=== PATIENT | female | born 1950 | race Caucasian/White ===

== ENCOUNTER → 2023-11-28 | Emergency (ER) | payer OTHER ==
[~2023-11-28] MED LIST: cloNIDine HCL 0.1 MG TAB ONE
[2023-11-28 14:02] LABS: Absolute Lymphocytes (CBC) 2.3 K/uL (0.7-4.9); Hematocrit 42.5 % (36.0-45.0); MCV 90.4 fL (80-100); MPV 8.9 fL (7.6-11.3); Platelets 267 thou/uL (152-406)
--- NOTE | 2023-11-28 14:13 | RAD REPORT ---
EXAM DESCRIPTION: CT - Head Brain Wo Cont - 11/28/2023 2:03 pm CLINICAL HISTORY: Headache;Visual disturbances COMPARISON: No comparisons TECHNIQUE: All CT scans are performed using dose optimization technique as appropriate and may inclu de automated exposure control or mA/KV adjustment according to patient size. FINDINGS: No intracranial hemorrhage, hydrocephalus or extra-axial fluid collection.No areas of brai n edema or evidence of midline shift. The paranasal sinuses and mastoids are clear. The calvarium is intact. IMPRESSION: No acute intracranial abnormality.
--- NOTE | 2023-11-28 14:15 | RAD REPORT ---
EXAM DESCRIPTION: RAD - Chest Single View - 11/28/2023 1:58 pm CLINICAL HISTORY: CHEST PAIN COMPARISON: No comparisons FINDINGS: Lines: None. Lungs: No evidence of edema or pneumonia. Pleural: No significant pleural effusions or pneumothorax. Cardiac: The heart size is within normal limits. Mediastinum: Within normal limits. Bones: No acute fractures. Other: None IMPRESSION: No acute cardiopulmonary disease.
[2023-11-28 14:22] LABS: Potassium 4.1 mEq/L (3.5-5.1)
--- NOTE | 2023-11-28 14:27 | ER ---
Nurse's Notes [facility] Name: Gayatri Castañeda Age: 73 yrs Sex: Female : 1950 Arrival Date: 11/28/2023 Time: 13:08 Bed 17 Private MD: Diagnosis: Essential (primary) hypertension Presentation: 11/28 13:12 Chief complaint: Patient states: Dr Bartlett said if she felt dizzy or nauseated to come ko1 in and she is feeling this today. Scheduled for echo tomorrow. Coronavirus screen: At this time, the client does not indicate any symptoms associated with coronavirus-19. Ebola Screen: No symptoms or risks identified at this time. Initial Sepsis Screen: Does the patient meet any 2 criteria? No. Patient's initial sepsis screen is negative. Does the patient have a suspected source of infection? No. Patient's initial sepsis screen is negative. Risk Assessment: Do you want to hurt yourself or someone else? Patient reports no desire to harm self or others. Onset of symptoms was November 28, 2023. 13:12 Method Of Arrival: Ambulatory ko1 13:12 Acuity: HOLDEN 3 ko1 Triage Assessment: 13:12 General: Appears in no apparent distress. Behavior is calm, cooperative, appropriate ko1 for age. Pain: Complains of pain in headache. GI: Reports nausea. Historical: - Allergies: 13:21 No Known Allergies; ko1 - PMHx: 13:21 Hypertensive disorder; ko1 - Immunization history:: Adult Immunizations unknown. - Social history:: Smoking status: Patient denies any tobacco usage or history of. Screenin:36 [facility] ED Fall Risk Assessment (Adult) History of falling in the last 3 months, me1 including since admission No falls in past 3 months (0 pts) Confusion or Disorientation No (0 pts) Intoxicated or Sedated No (0 pts) Impaired Gait No (0 pts) Mobility Assist Device Used No (0 pt) Altered Elimination No (0 pt) Score/Fall Risk Level 0 - 2 = Low Risk Oriented to surroundings, Provided non-skid footwear, Hourly rounding (assess needs \T\ fall precautionary measures) done. Abuse screen: Denies threats or abuse. Nutritional screening: No deficits noted. Tuberculosis screening: No symptoms or risk factors identified. Assessment: 13:59 General: Appears comfortable, well groomed, well developed, well nourished, Behavior is me1 calm, cooperative, appropriate for age, Reports Dr Bartlett said if she felt dizzy or nauseated to come in and she is feeling this today. Scheduled for echo tomorrow. Pain: Denies pain. Neuro: Level of Consciousness is awake, alert, obeys commands, Oriented to person, place, time, situation, Appropriate for age. Neuro: Reports dizziness, for a short time this morning. Cardiovascular: Capillary refill < 3 seconds Patient's skin is warm and dry. Respiratory: Airway is patent Respiratory effort is even, unlabored, Respiratory pattern is regular, symmetrical. GI: Abdomen is flat, Reports nausea. 14:01 Cardiovascular: Denies chest pain. me1 Vital Signs: 13:12 BP 220 / 111; Pulse 34; Resp 18; Temp 97.1; Pulse Ox 98% ; Weight 66.68 kg; Height 5 ko1 ft. 5 in. ; 13:36 BP 172 / 87; Pulse 85; Resp 17; Pulse Ox 95% on R/A; me1 14:27 BP 132 / 78; sb4 14:30 BP 137 / 47; Pulse 81; Resp 16; Pulse Ox 97% on R/A; me1 14:55 BP 133 / 83; Pulse 77; Resp 20; Pulse Ox 94% on R/A; me1 13:12 Body Mass Index 24.46 (66.68 kg, 165.1 cm) ko1 ED Course: 13:11 Patient arrived in ED. im 13:12 Arm band placed on right wrist. Patient placed in an exam room, on a stretcher, on ko1 pulse oximetry, Patient notified of wait time. 13:15 Triage completed. ko1 13:18 Heather Miguel PA-C is PHCP. sb4 13:18 Victoriano Kemp MD is Attending Physician. sb4 13:36 Tiffany Lopez RN is Primary Nurse. me1 13:36 Patient has correct armband on for positive identification. Bed in low position. Call me1 light in reach. Side rails up X 1. Provided Education on: POC. Verbalized understanding. . 13:36 No provider procedures requiring assistance completed. me1 13:57 Inserted saline lock: 22 gauge in left antecubital area, using aseptic technique. me1 13:58 Basic Metabolic Panel Sent. me1 13:58 CBC with Diff Sent. me1 13:58 Troponin HS Sent. me1 14:00 XRAY Chest (1 view) In Process Unspecified. EDMS 14:05 Head Brain Wo Cont CT In Process Unspecified. EDMS 14:26 Samuel Bartlett MD is Referral Physician. sb4 14:56 IV discontinued, intact, bleeding controlled, No redness/swelling at site. Pressure me1 dressing applied. Administered Medications: 13:41 Drug: cloNIDine PO 0.1 mg PO once Route: PO; me1 14:08 Follow up: Response: No adverse reaction me1 Medication: 13:36 VIS not applicable for this client. me1 Outcome: 14:26 Discharge ordered by MD. sb4 14:56 Discharged to home ambulatory, with friend, me1 14:56 Condition: stable 14:56 Discharge instructions given to patient, friend, Instructed on discharge instructions, follow up and referral plans. Demonstrated understanding of instructions, follow-up care, 14:56 Patient left the ED. me1 Signatures: Dispatcher [employer] Nancy Mas, RN RN ko1 Heather Miguel, PA-C PA-C sb4 Yessi Berumen Michelle, RN RN me1 Corrections: (The following items were deleted from the chart) 13:58 13:12 Chief complaint: Patient states: Dr Bartlett said if she felt dizzy or nauseated to me1 come in and she is feeling this today. Scheduled for echo tomorrow. ko1
--- NOTE | 2023-11-28 14:27 | EDPHYS ---
Physician Documentation [facility] Name: Gayatri Castañeda Age: 73 yrs Sex: Female : 1950 Arrival Date: 11/28/2023 Time: 13:08 Bed 17 Private MD: ED Physician Victoriano Kemp HPI: 11/28 13:30 This 73 yrs old Female presents to ER via Ambulatory with complaints of Dizziness, sb4 Nausea, Headache. 13:30 patient complains of headache, dizziness, and nausea that began just MANAGER UTILITIES. she states sb4 that she was diagnosed with hypertension about 2 weeks ago and started on carvedilol. she saw Dr. Bartlett a few days ago, who doubled the dose. she states that she did not take it last night, but did take it this morning. she denies any chest pain, shortness of breath. Historical: - Allergies: 13:21 No Known Allergies; ko1 - PMHx: 13:21 Hypertensive disorder; ko1 - Immunization history:: Adult Immunizations unknown. - Social history:: Smoking status: Patient denies any tobacco usage or history of. ROS: 13:30 Constitutional: Negative for fever, chills, and weight loss, sb4 13:30 Abdomen/GI: Positive for nausea, 13:30 Neuro: Positive for dizziness, headache, 13:30 All other systems are negative, Exam: 13:30 Constitutional: This is a well developed, well nourished patient who is awake, alert, sb4 and in no acute distress. Head/Face: Normocephalic, atraumatic. Eyes: Extra-ocular motions intact. Periorbital areas with no swelling, redness, or edema. ENT: Mucous membranes moist. Cardiovascular: Regular rate and rhythm with a normal S1 and S2. Respiratory: Lungs have equal breath sounds bilaterally, clear to auscultation and percussion. No rales, rhonchi or wheezes noted. No increased work of breathing, no retractions or nasal flaring. Abdomen/GI: Soft, non-tender, no distension. Skin: Warm, dry with normal turgor. Normal color with no rashes, no lesions, and no evidence of cellulitis. MS/ Extremity: Pulses equal, no cyanosis. Neurovascular intact. Full, normal range of motion. Neuro: Awake and alert, GCS 15, oriented to person, place, time, and situation. Motor strength 5/5 in all extremities. Sensory grossly intact. Vital Signs: 13:12 BP 220 / 111; Pulse 34; Resp 18; Temp 97.1; Pulse Ox 98% ; Weight 66.68 kg; Height 5 ko1 ft. 5 in. ; 13:36 BP 172 / 87; Pulse 85; Resp 17; Pulse Ox 95% on R/A; me1 14:27 BP 132 / 78; sb4 14:30 BP 137 / 47; Pulse 81; Resp 16; Pulse Ox 97% on R/A; me1 14:55 BP 133 / 83; Pulse 77; Resp 20; Pulse Ox 94% on R/A; me1 13:12 Body Mass Index 24.46 (66.68 kg, 165.1 cm) ko1 MDM: 13:22 Patient medically screened. sb4 13:30 Differential diagnosis: CVA, ACS, hypertensive emergency. sb4 14:25 Data reviewed: vital signs, nurses notes, lab test result(s), EKG, radiologic studies, sb4 and as a result, I will discharge patient. Consideration of Admission/Observation Escalation of care including admission/observation considered. Care significantly affected by the following chronic conditions: Hypertension. 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 Medication response: clonidine reduced the patient's elevated blood pressure to within acceptable limits. 11/28 13:29 Order name: Basic Metabolic Panel; Complete Time: 14:22 sb4 11/28 13:29 Order name: CBC with Diff; Complete Time: 14:18 sb4 11/28 13:29 Order name: Troponin HS; Complete Time: 14: sb4 11/28 13:29 Order name: XRAY Chest (1 view); Complete Time: 14:18 sb4 11/28 13:29 Order name: Head Brain Wo Cont CT; Complete Time: 14:18 sb4 11/28 13:29 Order name: EKG; Complete Time: 13:30 sb4 11/28 13:29 Order name: Cardiac monitoring; Complete Time: 14:09 sb4 11/28 13:29 Order name: EKG - Nurse/Tech; Complete Time: 13:57 sb4 11/28 13:29 Order name: IV Saline Lock; Complete Time: 13:57 sb4 11/28 13:29 Order name: Labs collected and sent; Complete Time: 13:57 sb4 11/28 13:29 Order name: O2 Per Protocol; Complete Time: 13:57 sb4 11/28 13:29 Order name: O2 Sat Monitoring; Complete Time: 13:57 sb4 EC:00 Rate is 80 beats/min. Rhythm is regular, Normal Sinus Rhythm with Unifocal PVCs. AL sb4 interval is normal at 146 msec. QRS interval is normal at 74 msec. QT interval is normal at 400 msec. Clinical impression: No evidence of ischemia. Interpreted by me. Reviewed by me. Administered Medications: 13:41 Drug: cloNIDine PO 0.1 mg PO once Route: PO; me1 14:08 Follow up: Response: No adverse reaction me1 Disposition: 17:01 Co-signature as Attending Physician, Victoriano Kemp MD I reviewed the patient's care rn provided by the Advanced Practice Provider and agree with the diagnosis and treatment plan. Disposition Summary: 11/28/23 14:26 Discharge Ordered Notes: Location: Home sb4 Problem: new sb4 Symptoms: have improved sb4 Condition: Stable sb4 Diagnosis - Essential (primary) hypertension sb4 Followup: sb4 - With: Samuel Bartlett MD - When: 2 - 3 days - Reason: Recheck today's complaints, Re-evaluation by your physician Discharge Instructions: - Discharge Summary Sheet sb4 - Hypertension, Adult sb4 - How to Take Your Blood Pressure, [id number] sb4 Forms: - Medication Reconciliation Form sb4 - Thank You Letter sb4 - Antibiotic Education sb4 - Prescription Opioid Use sb4 - Patient Portal Instructions sb4 - Leadership Thank You Letter sb4 Signatures: Dispatcher [employer] Victoriano Milton MD MD rn Oliver, Kathy, RN RN Heather Mcintyre PA-C PANicolette sb4 Tiffany Lopez RN RN me1
[2023-11-28 15:43] VITALS: BP 133/83; TEMP 97.1; O2SAT 94
--- NOTE | 2023-11-29 16:53 | EKG ---
Test Date: 2023-11-28 Test Time: 13:54:04 Follow Up Clerk: MEASUREMENT RESULTS: Intervals: Rate: 80 PA: 146 QRSD: 74 QT: 400 QTc: 461 Collins: P: 53 PA: 146 QRS: 21 T: 69 INTERPRETIVE STATEMENTS: Sinus rhythm with frequent premature ventricular complexes Possible Left atrial enlargement Cannot rule out Anterior infarct, age undetermined Abnormal ECG No previous ECG available for comparison Electronically Signed On 11-29-23 16:51:27 CARDIOGRAPH OPERATOR by Samuel Bartlett
== END ==
LOC: ER 13:08
DX: I10 Essential (primary) hypertension (principal)
CPT/HCPCS: 36415; 70450; 71045; 80048; 84484; 85025; 93005; 99284

== ENCOUNTER 2024-01-24 18:16 | Inpatient (IN) | payer OTHER ==
[2024-01-24 18:59] LABS: Absolute Basophils 0.1 K/uL (0-0.5); Absolute Eosinophils 0.3 K/uL (0-0.5); Absolute Lymphocytes (CBC) 3.2 K/uL (0.7-4.9); Absolute Monocytes 0.7 K/uL (0.1-1.3); Absolute Neutrophil 4.9 K/uL (1.8-8.0); Basophils % 1.5 % (0-1.3); Eosinophils % 3.5 % (0-4.4); Hematocrit 40.9 % (36.0-45.0); Hemoglobin 13.9 g/dL (12.0-15.0); Lymphocytes % 34.7 % (15.3-44.8); MCH 30.9 pg (27.0-35.0); MCV 90.9 fL (80-100); MPV 9.1 fL (7.6-11.3); Monocytes % 7.2 % (3.3-12.3); Neutrophils % 53.1 % (41.7-73.7); Nucleated Red Blood Cells % 0.1 % (0-0); Platelets 268 thou/uL (152-406); Red Cell Distribution Width 13.2 % (12.1-15.2)
[2024-01-24 19:21] LABS: Anion Gap 10.7 mEq/L (5.0-15.0); Potassium 3.7 mEq/L (3.5-5.1); Troponin High Sensitivity 10.1 pg/mL (<58.9)
--- NOTE | 2024-01-24 19:42 | RAD REPORT ---
EXAM DESCRIPTION: RADChest Single View01/24/2024 7:19 pm CLINICAL HISTORY: CHEST PAIN COMPARISON: Chest Single View dated 11/28/2023; Chest For Pe Angio dated 01/24/2024 TECHNIQUE: Portable AP view of the chest. FINDINGS: Decreased inspiratory effort limits evaluation. The lungs are clear. No pneumothorax or e ffusion. The cardiomediastinal contours are unremarkable. IMPRESSION: No acute cardiopulmonary process.
--- NOTE | 2024-01-24 20:30 | ER ---
Nurse's Notes [facility] Name: Gayatri Mack Age: 73 yrs Sex: Female : 1950 Arrival Date: 01/24/2024 Time: 18:16 Bed 18 Private MD: Diagnosis: Chest pain, unspecified Presentation: 01/23 18:35 Chief complaint: Patient states: Chest tightness x 2 weeks, worse w/ exertion or ph stress, SOB today, denies N/V. Coronavirus screen: Vaccine status: Patient reports receiving the 2nd dose of the covid vaccine. Ebola Screen: No symptoms or risks identified at this time. Initial Sepsis Screen: Does the patient meet any 2 criteria? No. Patient's initial sepsis screen is negative. Does the patient have a suspected source of infection? No. Patient's initial sepsis screen is negative. Risk Assessment: Do you want to hurt yourself or someone else? Patient reports no desire to harm self or others. Onset of symptoms was January 24, 2024. 18:35 Method Of Arrival: Ambulatory ph 18:35 Acuity: HOLDEN 2 ph Triage Assessment: 18:36 General: Appears in no apparent distress. comfortable, well groomed, Behavior is calm, ph cooperative. Pain: Complains of pain in mid-sternal area. Neuro: Level of Consciousness is awake, alert, obeys commands, Oriented to person, place, time, situation. Cardiovascular: Reports chest pain. Respiratory: Reports shortness of breath at rest on exertion. Historical: - Allergies: 18:36 No Known Allergies; ph - PMHx: 18:36 Hypertensive disorder; ph - Immunization history:: Adult Immunizations unknown. - Social history:: Smoking status: Patient denies any tobacco usage or history of. Screenin:49 [facility] ED Fall Risk Assessment (Adult) History of falling in the last 3 months, cp4 including since admission No falls in past 3 months (0 pts) Confusion or Disorientation No (0 pts) Intoxicated or Sedated No (0 pts) Impaired Gait No (0 pts) Mobility Assist Device Used No (0 pt) Altered Elimination No (0 pt) Score/Fall Risk Level 0 - 2 = Low Risk Oriented to surroundings, Maintained a safe environment, Assessed \T\ reinforced patient's understanding of fall precautions, Hourly rounding (assess needs \T\ fall precautionary measures) done. Abuse screen: Denies threats or abuse. Nutritional screening: No deficits noted. Tuberculosis screening: No symptoms or risk factors identified. Assessment: 18:49 General: Appears in no apparent distress. Behavior is calm, cooperative, appropriate cp4 for age. Pain: Pain does not radiate. Pain began suddenly. Cardiovascular: Reports chest pain, Rhythm is sinus rhythm. 22:15 Reassessment: ASSUMED CARE OF PT. PT SITTING IN BED. STATES HER BP IS GETTING HIGH jj7 BECAUSE SHE DIDN'T TAKE HER NIGHT TIME BP MEDS. PT INFORMED SHE IS ADMITTED AND WILL GOING TO THE UNIT IN 20 MINUTES. DAUGHTER AT BEDSIDE. REQUEST FOR WATER. NO ADDITIONAL NEEDS AT THIS TIME. Vital Signs: 18:35 BP 165 / 82; Pulse 89; Resp 18; Temp 98.2; Pulse Ox 100% on R/A; Weight 68.04 kg; ph Height 5 ft. 5 in. ; 19:30 BP 152 / 100; Pulse 87; Resp 18; Pulse Ox 95% ; cp4 20:30 BP 161 / 55; Pulse 73; Resp 18; Pulse Ox 100% ; cp4 21:30 BP 136 / 61; Pulse 77; Resp 18; Pulse Ox 95% ; cp4 22:15 BP 175 / 97; Pulse 80; Resp 18; Pulse Ox 98% ; Pain 0/10; jj7 18:35 Body Mass Index 24.96 (68.04 kg, 165.1 cm) ph 22:15 Pain Scale: Adult jj7 ED Course: 18:17 Patient arrived in ED. rg4 18:22 Davion Coto MD is Attending Physician. ec2 18:35 Marian Carmona is Primary Nurse. cp4 18:36 Triage completed. ph 18:37 Arm band placed on Patient placed in an exam room, on a stretcher, on core drill operator helper, ph on pulse oximetry. EKG completed in triage. Results shown to MD. 18:49 Bed in low position. Call light in reach. Side rails up X 1. Client placed on cp4 continuous cardiac and pulse oximetry monitoring. NIBP monitoring applied. traffic routing engineer on. Warm blanket given. 18:49 Basic Metabolic Panel Sent. cp4 18:49 CBC with Diff Sent. cp4 18:49 NT PRO-BNP Sent. cp4 18:49 Troponin HS Sent. cp4 18:49 No provider procedures requiring assistance completed. Inserted saline lock: 20 gauge cp4 in right forearm, using aseptic technique. Blood collected. Patient maintains SpO2 saturation greater than 95% on room air. 19:21 XRAY Chest (1 view) In Process Unspecified. EDMS 19:38 CT Chest For PE Angio In Process Unspecified. EDMS 20:30 Erich Rodarte MD is Hospitalizing Provider. ec2 22:15 Patient admitted, IV remains in place. jj7 Administered Medications: No medications were administered Medication: 18:49 VIS not applicable for this client. cp4 Outcome: 20:30 Decision to Hospitalize by Provider. ec2 22:45 Admitted to Med/surg accompanied by tech, via wheelchair, room 207, Report called to [facility] REPORT FAXED TO SECOND FLOOR BY LUPILLO VAZQUEZ 22:45 Condition: good jj7 23:45 Patient left the ED. jj7 Signatures: Dispatcher [employer] Latricia Carey RN RN Trudi Maria 4 William Peck RN RN j7 Davion Coto MD MD 2 Marian Carmona [facility]
--- NOTE | 2024-01-24 20:30 | EDPHYS ---
Physician Documentation [facility] Name: Gayatri Mack Age: 73 yrs Sex: Female : 1950 Arrival Date: 01/24/2024 Time: 18:16 Bed 18 Private MD: ED Physician Davion Coto HPI: 01/23 18:35 This 73 yrs old Female presents to ER via Unassigned with complaints of Chest ec2 Tightness. 18:35 Patient arrives today for evaluation of chest pain. Patient reports chest pain ec2 intermittent for several weeks. Patient reports no specific alleviating or exacerbating factors. Patient reports history of hypertension. Patient reports no cardiac disease that she is aware of.. Historical: - Allergies: 18:36 No Known Allergies; ph - PMHx: 18:36 Hypertensive disorder; ph - Immunization history:: Adult Immunizations unknown. - Social history:: Smoking status: Patient denies any tobacco usage or history of. ROS: 18:35 Constitutional: as per hpi ec2 Exam: 18:35 Constitutional: GEN: NAD Head: atraumatic Eyes: EOMI Ears: External ears are ec2 normal. CV: regular rate LUNGS: no respiratory distress ABD: non-distended SKIN: no evidence of rashes MSK: no evidence of trauma NEURO: moves all extremities equally Vital Signs: 18:35 BP 165 / 82; Pulse 89; Resp 18; Temp 98.2; Pulse Ox 100% on R/A; Weight 68.04 kg; ph Height 5 ft. 5 in. ; 19:30 BP 152 / 100; Pulse 87; Resp 18; Pulse Ox 95% ; cp4 20:30 BP 161 / 55; Pulse 73; Resp 18; Pulse Ox 100% ; cp4 21:30 BP 136 / 61; Pulse 77; Resp 18; Pulse Ox 95% ; cp4 22:15 BP 175 / 97; Pulse 80; Resp 18; Pulse Ox 98% ; Pain 0/10; jj7 18:35 Body Mass Index 24.96 (68.04 kg, 165.1 cm) ph 22:15 Pain Scale: Adult jj7 MDM: 18:24 Patient medically screened. ec2 18:35 Data reviewed: vital signs. ED course: Patient arrives today for evaluation of chest ec2 pain. Examination remarkable for well-appearing nontoxic individual is otherwise in no acute distress. EKG obtained, independently reviewed and interpreted by me, shows normal sinus rhythm, rate 91, PVC noted, no acute ST segment elevations. Will obtain chest x-ray, CT scan of the chest as well as lab work. Abdominal for ACS, PE, doubt dissection.. 19:35 ED course: Metabolic profile is reassuring, slight hyperglycemia noted. CBC reassuring, ec2 troponin within normal ranges, BNP minimally elevated at 1000. Patient with pending CT scan, will obtain repeat EKG and troponin as well.. 19:57 ED course: Chest x-ray shows no acute intrathoracic process.. ec2 20:29 ED course: On reassessment patient is well-appearing no acute distress. Will admit the ec2 patient for medium risk chest pain evaluation. Discussed case with hospitalist, pending admission.. 0318 18:35 Order name: Basic Metabolic Panel; Complete Time: 19:35 ec2 01/23 18:35 Order name: CBC with Diff; Complete Time: 19:35 ec2 01/23 18:35 Order name: NT PRO-BNP; Complete Time: 19:35 ec2 18 18:35 Order name: Troponin HS; Complete Time: 19:35 ec2 0318 20:42 Order name: Basic Metabolic Panel EDMS 01/23 20:42 Order name: Basic Metabolic Panel EDMS 01/23 20:42 Order name: Basic Metabolic Panel EDMS 01/23 20:42 Order name: CBC with Automated Diff EDMS 01/23 20:42 Order name: CBC with Automated Diff EDMS 01/23 20:42 Order name: CBC with Automated Diff EDMS 01/23 20:42 Order name: Lipid Profile EDMS 01/23 20:42 Order name: Lipid Profile EDMS 01/23 20:42 Order name: Troponin High Sensitivity EDMS 01/23 20:42 Order name: Troponin High Sensitivity EDMS 01/23 20:42 Order name: Troponin High Sensitivity EDMS 01/23 20:42 Order name: Troponin High Sensitivity EDMS 01/23 18:35 Order name: XRAY Chest (1 view); Complete Time: 19:57 ec2 18 18:35 Order name: CT Chest For PE Angio; Complete Time: 20:36 ec2 18 20:42 Order name: Echo with Doppler EDMS 01/23 18:35 Order name: EKG; Complete Time: 18:35 ec2 01/23 18:35 Order name: Cardiac monitoring; Complete Time: 18:36 ec2 01/23 18:35 Order name: EKG - Nurse/Tech; Complete Time: 18:36 ec2 01/23 18:35 Order name: IV Saline Lock; Complete Time: 18:48 ec2 01/23 18:35 Order name: Labs collected and sent; Complete Time: 18:49 ec2 01/23 18:35 Order name: O2 Per Protocol; Complete Time: 18:36 ec2 01/23 18:35 Order name: O2 Sat Monitoring; Complete Time: 18:36 ec2 Administered Medications: No medications were administered Disposition Summary: 01/24/24 20:30 Hospitalization Ordered Notes: Hospitalization Status: Inpatient Admission ec2 Provider: Erich Rdoarte ec2 Location: Telemetry/MedSurg (observation) ec2 Condition: Stable ec2 Problem: new ec2 Symptoms: have improved ec2 Bed/Room Type: Standard ec2 Room Assignment: [facility](01/24/24 21:37) [facility] Diagnosis - Chest pain, unspecified ec2 Forms: - Medication Reconciliation Form ec2 - SBAR form ec2 - Leadership Thank You Letter ec2 Signatures: Dispatcher [employer] Latricia Carey RN RN Davion Coto MD MD ec2 Karyn Sena [facility] Corrections: (The following items were deleted from the chart) 21:37 20:30 ec2 kmf
--- NOTE | 2024-01-24 20:34 | RAD REPORT ---
EXAM DESCRIPTION: CT - Chest For Pe Angio - 01/24/2024 7:37 pm CLINICAL HISTORY: CHEST PAIN COMPARISON: Chest Single View dated 01/24/2024; Chest Single View dated 11/28/2023 TECHNIQUE: Thin axial CT images of the chest were obtained following administration of 100 mL Isovue 370 IV contrast. Multiplanar reconstructions, and maximum intensity projection reconstructions were generated and reviewed. Exam utilizes a protocol for optimal evaluation of pulmonary arterial tree. All CT scans are performed using dose optimization technique as appropriate and may include automated exposure control or mA/KV adjustment according to patient size. FINDINGS: Pulmonary arteries are normal. No emboli or other suspicious finding. No acute or signific ant aorta findings. Areas of confluent nodularity and tree-in-bud opacities along the posterior upper lobes, basal right upper lobe anteriorly, lingula, and right middle lobe. No pleural thickening or pleural effusion. No pneumothorax. No abnormal mediastinal or hilar masses or lymphadenopathy seen. No chest wall mass or abnormal axill iary lymphadenopathy. IMPRESSION: No evidence of acute central pulmonary emboli. Multifocal areas of confluent parenchymal lung nodularity and tree-in-bud opacities, most suggestive of an infectious or inflammatory process such as pneumonia.
[2024-01-24] MEDS ORDERED: NITROGLYCERIN 0.4 MG/TAB SL PRN (20:35)
[2024-01-24] MEDS ORDERED: HYDROCODONE/APAP 5/325 MG TAB PO PRN (20:35)
[2024-01-24] MEDS ORDERED: ACETAMINOPHEN 500 MG TAB PO PRN (20:35)
[2024-01-24] MEDS ORDERED: MORPHINE 4 MG/ML SYR IV PRN (20:35)
[2024-01-24] MEDS ORDERED: ONDANSETRON 4 MG/2 ML VIAL IV PRN (20:35)
--- NOTE | 2024-01-24 20:40 | P.HP ---
Certification for Inpatient Patient admitted to: Observation With expected LOS: <2 Midnights Practitioner: I am a practitioner with admitting privileges, knowledge of patient current condition, hospital course, and medical plan of care. Services: Services provided to patient in accordance with Admission requirements found in Title 42 Section 412.3 of the Code of Federal Regulations Patient History Date of Service: 01/25/24 Reason for admission: Chest pain, pneumonia. History of Present Illness: 73-year-old female patient was evaluated in ED for episode of chest pain and congestion/heavy feeling. She reported sensation of heavy feeling in the lung with chest pain rated 6 out of 10 in intensity. Location is central with no overt episode of fever, chills. She was worked up in the ED for suspected intrathoracic pathology and was found to have CT of the chest concerning for tree-in-bud appearance of the tracheobronchial tree worrisome for infectious process. She also does have a history of reflux esophagitis and she takes pantoprazole therapy. Initial troponin and EKG were not overtly concerning. She was admitted for inpatient workup of suspected ACS. Allergies No Known Allergies Allergy (Verified 01/04/24 13:02) Home Medications: Aspirin Chewable [Aspirin Chewable*] 81 mg PO DAILY 01/04/24 Pantoprazole [Protonix Tab] 40 mg PO EVERY 3RD DAY PRN 01/04/24 Carvedilol [Coreg] 3.125 mg PO BID 01/24/24 Review of Systems General: Malaise Eyes: Unremarkable ENT: Unremarkable Respiratory: As per HPI Cardiovascular: As per HPI Gastrointestinal: Unremarkable Genitourinary: Unremarkable Musculoskeletal: Unremarkable Integumentary: Unremarkable Neurological: Unremarkable Lymphatics: Unremarkable Physical Examination - Physical Exam General: Alert, Oriented x3 HEENT: Atraumatic Neck: Supple Respiratory: Normal air movement Cardiovascular: Regular rate/rhythm, Normal S1 S2 Gastrointestinal: Soft and benign Musculoskeletal: No swelling Neurological: Normal speech, Normal strength at 5/5 x4 extr - Studies Laboratory Data (last 24 hrs) 01/24/24 01/24/24 18:46 18:46 WBC 9.20 Hgb 13.9 Hct 40.9 Plt Count 268 Sodium 139 Potassium 3.7 BUN 21 H Creatinine 0.96 Glucose 228 H Assessment and Plan - Plan Chest pain: Worrisome for possible ACS. Will trend troponin, put on aspirin therapy and have cardiology evaluate. She recently had a stress test. Cardiology consulted for management recommendation. Pneumonia: Chest x-ray and CT of the chest is concerning for episode of pneumonia. Continue empiric antibiotic therapy with Rocephin and azithromycin pending further review. PM. Therapy to be continued. Hyperlipidemia: Continue statin therapy. History of hypertension: Will monitor vital signs per unit protocol and continue antihypertensive medications. History of reflux esophagitis: Will continue pantoprazole therapy. Prophylaxis: Lovenox for DVT prophylaxis. CODE STATUS: Full code. Disposition: We will treat her chest pain and she will be discharged when deemed clinically stable and cleared by cardiology service. - Advance Directives Does patient have a Living Will: No Does patient have a Durable POA for Healthcare: No
[2024-01-24] MEDS: ATORVASTATIN 40 MG TAB PO SCH (21:00)
[2024-01-24 21:52] LABS: Absolute Basophils 0.1 K/uL (0-0.5); Absolute Eosinophils 0.3 K/uL (0-0.5); Absolute Lymphocytes (CBC) 3.1 K/uL (0.7-4.9); Absolute Monocytes 0.8 K/uL (0.1-1.3); Absolute Neutrophil 4.3 K/uL (1.8-8.0); Basophils % 0.9 % (0-1.3); Eosinophils % 3.4 % (0-4.4); Hemoglobin 13.3 g/dL (12.0-15.0); Lymphocytes % 36.1 % (15.3-44.8); MCH 30.8 pg (27.0-35.0); MCV 90.6 fL (80-100); MPV 8.7 fL (7.6-11.3); Monocytes % 9.4 % (3.3-12.3); Neutrophils % 50.2 % (41.7-73.7); Platelets 246 thou/uL (152-406); RBC Red Blood Cell Count 4.31 M/uL (3.86-4.86); Red Cell Distribution Width 13.3 % (12.1-15.2)
[2024-01-24 22:09] LABS: Troponin High Sensitivity 9.1 pg/mL (<58.9)
[2024-01-24 23:15] VITALS: BMI 24.9
[2024-01-24] MEDS ORDERED: PANTOPRAZOLE 40MG TABLET PO PRN (23:46)
[2024-01-24] MEDS ORDERED: D50W 25 GM/50 ML SYRINGE IV PRN (23:48)
[2024-01-24] MEDS ORDERED: GLUCAGON 1 MG/VIAL IM PRN (23:48)
[2024-01-24] MEDS ORDERED: D10W 125 ML IV PRN (23:52)
[2024-01-25 04:56] LABS: Absolute Basophils 0.1 K/uL (0-0.5); Absolute Eosinophils 0.3 K/uL (0-0.5); Absolute Monocytes 0.8 K/uL (0.1-1.3); Basophils % 1.2 % (0-1.3); Eosinophils % 4.2 % (0-4.4); Hematocrit 39.2 % (36.0-45.0); Hemoglobin 13.4 g/dL (12.0-15.0); Lymphocytes % 36.3 % (15.3-44.8); MCH 30.9 pg (27.0-35.0); MCHC 34.2 g/dL (32.0-36.0); MCV 90.6 fL (80-100); MPV 9.1 fL (7.6-11.3); Monocytes % 9.3 % (3.3-12.3); Nucleated Red Blood Cells % 0.1 % (0-0); Platelets 262 thou/uL (152-406); RBC Red Blood Cell Count 4.33 M/uL (3.86-4.86); Red Cell Distribution Width 13.6 % (12.1-15.2)
[2024-01-25 06:07] LABS: Anion Gap 8.9 mEq/L (5.0-15.0); Potassium 3.9 mEq/L (3.5-5.1)
[2024-01-25 06:12] LABS: Troponin High Sensitivity 10.2 pg/mL (<58.9)
[2024-01-25] MEDS: INSULIN REGULAR (HUMAN) 100 UNIT/ML SQ SCH (07:30)
[2024-01-25] MEDS: ENOXAPARIN 40 MG/0.4 ML SQ SCH (08:39)
[2024-01-25] MEDS: carvediloL 3.125 MG TAB PO SCH (08:46)
[2024-01-25] MEDS: ASPIRIN EC 81 MG TAB PO SCH (08:46)
[2024-01-25] MEDS ORDERED: ASPIRIN 81 MG CHEWABLE TABLET PO SCH (09:00)
[2024-01-25] MEDS: NA CHLORIDE 0.9% 500 ML ONE (09:54)
[2024-01-25] MEDS ORDERED: HEPA 1000U/500MLS 2,000 UNIT/1,000 ML BAG IV ONE (10:10)
[2024-01-25] MEDS ORDERED: VERAPAMIL HCL 10 MG/4 ML VIAL IV ONE (10:10)
[2024-01-25] MEDS ORDERED: LIDOCAINE 1% 20 ML MDV ONE (10:10)
[2024-01-25] MEDS ORDERED: FENTANYL CITR 100 MCG/2 ML ONE (10:11)
[2024-01-25] MEDS ORDERED: MIDAZOLAM HCL 2 MG/2 ML INJ ONE (10:11)
[2024-01-25] MEDS ORDERED: ATROPINE SULF 1 MG/10 ML SYR IV ONE (10:11)
[2024-01-25] MEDS ORDERED: HEPARIN 5000 UNIT/ML 1 ML VIAL ONE (10:11)
[2024-01-25] MEDS ORDERED: HEPARIN 10,000 UNIT/10 ML VIAL IV ONE (10:11)
[2024-01-25] MEDS ORDERED: ASPIRIN 325 MG TAB ONE (10:15)
[2024-01-25] MEDS ORDERED: CLOPIDOGREL 75 MG TABLET ONE (10:15)
[2024-01-25] MEDS ORDERED: TICAGRELOR 90 MG TABLET PO ONE (10:15)
--- NOTE | 2024-01-25 11:20 | P.PN ---
Subjective Date of Service: 01/25/24 Chief Complaint: Chest pain, pneumonia. Pt is resting comfortably in bed. 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 CT chest shows pneumonia. Will continue rocephin and azithro. No other complaints Review of Systems General: Unremarkable Eyes: Unremarkable ENT: Unremarkable Respiratory: Unremarkable Cardiovascular: Unremarkable Gastrointestinal: Unremarkable Genitourinary: Unremarkable Musculoskeletal: Unremarkable Integumentary: Unremarkable Neurological: Unremarkable Lymphatics: Unremarkable Physical Examination - Vital Signs Temperature: 97.8 F Blood Pressure: 110/60 Pulse: 72 Respirations: 18 Pulse Ox (%): 93 - Physical Exam General: Alert, In no apparent distress, Oriented x3 HEENT: Atraumatic, Normocephalic, PERRLA Neck: Supple, 2+ carotid pulse no bruit Respiratory: Clear to auscultation bilaterally, Normal air movement Cardiovascular: No edema, Normal pulses, Regular rate/rhythm, Normal S1 S2 Capillary refill: <2 Seconds Gastrointestinal: Normal bowel sounds, Soft and benign, Non-distended Musculoskeletal: No clubbing, No swelling Integumentary: No rashes, No breakdown, No significant lesion Neurological: Normal gait, Normal speech, Normal strength at 5/5 x4 extr Lymphatics: No axilla or inguinal lymphadenopathy - Studies Laboratory Data (last 24 hrs) 01/24/24 01/24/24 18:46 18:46 WBC 9.20 Hgb 13.9 Hct 40.9 Plt Count 268 Sodium 139 Potassium 3.7 BUN 21 H Creatinine 0.96 Glucose 228 H Assessment And Plan - Plan Chest pain: Will r/o ACS. troponin is 10.2 <- 11.1 <- 9.1 <- 10.1. Cardiology will do cardiac cath today. Of note, pt recently had a stress test. Pneumonia: CXR is unremarkable. CT chest shows pneumonia. Will continue rocephin and azithro. Will f/u blood cx. Hyperlipidemia: Continue statin Hypertension: Continue antihypertensive medications. History of reflux esophagitis: Continue pantoprazole. DVT Prophylaxis: Lovenox Code: Full code. Disposition: Pending hospital course
--- NOTE | 2024-01-25 14:08 | EKG ---
Test Date: 2024-01-24 Test Time: 18:17:30 Linux Systems Administrator: PH MEASUREMENT RESULTS: Intervals: Rate: 91 MT: 142 QRSD: 76 QT: 386 QTc: 474 [place]: P: 57 MT: 142 QRS: 17 T: 64 INTERPRETIVE STATEMENTS: Sinus rhythm with frequent premature ventricular complexes Possible Left atrial enlargement Nonspecific ST abnormality Abnormal ECG Compared to ECG 01/16/1994 10:28:00 Ventricular premature complex(es) now present ST (T wave) deviation now present Electronically Signed On 01-25-24 14:05:18 CDT by Samuel Bartlett
[2024-01-25] MEDS: AZITHROMYCIN IV 500 MG in NA CHLORIDE 0.9% 250 ML IVPB SCH (14:57)
[2024-01-25] MEDS: CEFTRIAXONE 1,000 MG in NA CHLORIDE 0.9% 50 ML IVPB SCH (14:57)
[2024-01-25] MEDS: SOTALOL HCL 80 MG TAB PO SCH (17:27)
--- NOTE | 2024-01-25 19:55 | CON ---
Date of Consultation: 01/25/2024 Reason For Consultation: Chest pain and frequent PVCs. History Of Present Illness: A 73-year-old female, history of hypertension. She was evaluated in the office and she was having short runs of ventricular tachycardia and also large burden of PVCs. She was put on carvedilol, but without significant improvement. Presented with having some chest discomf ort, pressure like, on and off, radiates to the shoulder. Has no shortness of breath. No nausea, vo miting, or diarrhea. Past Medical History: As outlined above in the HPI. Medications: Refer reconciliation sheet for detailed list. Allergies: NO KNOWN DRUG ALLERGIES. Family History: No premature coronary artery disease or cancer. Social History: She does not smoke or drink. Does not use any drugs. Review of Systems: All systems reviewed were negative except above mentioned in HPI. Physical Examination: Vital Signs: Reviewed. Head and Neck: Pupils are equal, reactive to light. Intact eye movements. No JVD. No cervical lym phadenopathy. Neck is supple. Thyroid is not enlarged. Lungs: Clear to auscultation bilaterally. No rhonchi, rales, or crackles. No accessory muscle use. Heart: Regular. No extra sounds. Abdomen: Soft, nontender. Bowel sounds positive. No organomegaly. No masses or hernia. No rigidi ty or rebound. Extremities: No edema, clubbing, or cyanosis. Intact pulses. Skin: No rash. Neurologic: Alert, awake, oriented x3. No acute focal deficits appreciated. Investigations: Cardiac enzymes x4 are negative. BUN 18, creatinine 0.85. Hemoglobin is 13.4. Assessment/recommendation: 1.Chest pain, frequent PVCs, short runs of VT. Plan for coronary angiogram today and PCI as indicat ed. 2.Frequent PVCs, short runs of ventricular tachycardia. Recommend to initiate sotalol at 80 mg twic e a day. Discontinue carvedilol and monitor on telemetry. EKG after each dose of the sotalol to mickie luate the QTc interval. 3.Dyslipidemia. Continue statin. SR/MODL Voice ID: [id number] Report ID: [id number]
[2024-01-25] MEDS: TICAGRELOR 90 MG TABLET PO SCH (20:07)
--- NOTE | 2024-01-25 23:07 | OP ---
Date of Procedure: 01/25/2024 Surgeon: Daniele Mcclain Procedures Performed: 1.Selective coronary angiogram. 2.Left heart catheterization. 3.Percutaneous coronary intervention of the mid left anterior descending 70% lesions with Synergy 3. 0 x 20 mm drug-eluting stent. Indication For Procedure: Frequent PVCs and nonsustained V-tach. Access: Right radial, 6-Bengali, closed with TR band. Complications: None. Bleeding: Less than 10 cc. Anesthesia: Total sedation time was 20 minutes. The patient was given 3 of Versed and 75 of fentany l. Description Of Procedure: After risks, benefits, and alternative options were explained to the patie nt, she agreed to proceed with the procedures and signed informed consent. The patient was brought i nto the cardiac catheterization laboratory, prepped and draped in using sterile fashion. Then, I acc essed the right radial using pediatric Micropuncture kit, placed a 6-Bengali Slender sheath, and took a 5-Bengali [place] catheter into the aortic root over a J-wire, engaged the left main and the right cor onary artery, and took standard views and catheter was exchanged over long J-wire to a 6-Bengali EBU 3 .0 mm guide to engage the left main artery Runthrough wire into the LAD, predilated mid LAD lesions w ith 2.5 mm NC balloon. Next, Synergy 3.0 x 20 mm drug-eluting stent was placed across the lesion, st atus post dilated with 3.25 mm NC balloon. Repeat angiogram shows MARAL 3 flow. Wire was removed and repeated angiogram shows no signs of dissections with a good MARAL 3 flow, excellent results. The gu valorie was disengaged and was removed over a J-wire, heparin was given before the procedure and the ACT was more than 400 with repeated ACT at the end of procedure was 290. Sheath was removed and TR band was applied. We had good hemostasis. Findings: 1.Left main: Large, normal. 2.LAD: Proximal mild luminal irregularities, mid significant 70% ulcerated plaque, status post PCI with Synergy 3.0 x 20 drug-eluting stent. Mid to distal mild luminal irregularities. Diagonals smal l in size and patent. 3.Left circumflex: Mild luminal irregularities. 4.RCA: Large, dominant. Mild luminal irregularities. 5.RPDA, RPL: Mild luminal irregularities. Assessment And Plan: 1.Significant mid left anterior descending disease, status post percutaneous coronary intervention w ith Synergy 3.0 x 20 drug-eluting stent. 2.Normal filling pressure. LVEDP was 9. 3.Continue aspirin 81 mg daily. The patient was loaded with aspirin 325 in the woods laborer. 4.Brilinta 180 was given in the woods laborer, so continue Brilinta 90 mg p.o. b.i.d. 5.Titrate medial treatment. YOVANI/SUSAN Voice ID: [id number] Report ID: [id number]
[2024-01-26] MEDS: LABETALOL 20 MG/4ML SYRINGE IV PRN (00:19)
[2024-01-26 03:59] LABS: Absolute Eosinophils 0.3 K/uL (0-0.5); Absolute Lymphocytes (CBC) 2.1 K/uL (0.7-4.9); Absolute Monocytes 0.9 K/uL (0.1-1.3); Absolute Neutrophil 5.7 K/uL (1.8-8.0); Basophils % 0.5 % (0-1.3); Eosinophils % 3.7 % (0-4.4); Hematocrit 39.5 % (36.0-45.0); Hemoglobin 13.4 g/dL (12.0-15.0); Lymphocytes % 23.1 % (15.3-44.8); MCH 30.9 pg (27.0-35.0); MPV 8.9 fL (7.6-11.3); Monocytes % 9.7 % (3.3-12.3); Nucleated Red Blood Cells % 0.1 % (0-0); Platelets 278 thou/uL (152-406); RBC Red Blood Cell Count 4.34 M/uL (3.86-4.86); Red Cell Distribution Width 13.4 % (12.1-15.2)
[2024-01-26 04:33] LABS: Anion Gap 9.7 mEq/L (5.0-15.0); Potassium 3.7 mEq/L (3.5-5.1)
[2024-01-26] MEDS: POTASSIUM CL SA 10 MEQ TAB PO ONE (09:01)
--- NOTE | 2024-01-26 09:10 | P.PN ---
Subjective Date of Service: 01/26/24 Chief Complaint: Chest pain, pneumonia. Pt is resting comfortably in bed. Chief Electrician did cardiac cath on 01/25/24 and placed a stent to the LAD. Will continue aspirin and brilinta. Changed coreg to sotalol. CT chest shows pneumonia. Will continue rocephin and azithro. No other complaints Review of Systems General: Unremarkable Eyes: Unremarkable ENT: Unremarkable Respiratory: Unremarkable Cardiovascular: Unremarkable Gastrointestinal: Unremarkable Genitourinary: Unremarkable Musculoskeletal: Unremarkable Integumentary: Unremarkable Neurological: Unremarkable Lymphatics: Unremarkable Physical Examination - Vital Signs Temperature: 97.6 F Blood Pressure: 146/68 Pulse: 59 Respirations: 16 Pulse Ox (%): 97 - Physical Exam General: Alert, In no apparent distress, Oriented x3 HEENT: Atraumatic, Normocephalic Neck: Supple, 2+ carotid pulse no bruit Respiratory: Clear to auscultation bilaterally, Normal air movement Cardiovascular: No edema, Normal pulses, Regular rate/rhythm, Normal S1 S2 Capillary refill: <2 Seconds Gastrointestinal: Normal bowel sounds, Soft and benign, Non-distended Musculoskeletal: No clubbing, No swelling Integumentary: No rashes, No breakdown Neurological: Normal gait, Normal speech, Normal strength at 5/5 x4 extr Lymphatics: No axilla or inguinal lymphadenopathy Assessment And Plan - Plan Chest pain: Will r/o ACS. troponin is 10.2 <- 11.1 <- 9.1 <- 10.1. Cardiology did cardiac cath on 01/25/24 and placed a stent to LAD. Will continue aspirin and brilinta for at least 1 year. Of note, pt recently had a stress test. Pt had PVC on EKG. Cardiology changed coreg to sotalol. Pneumonia: CXR is unremarkable. CT chest shows pneumonia. Will continue rocephin and azithro. Will f/u blood cx. Hyperlipidemia: Continue statin Hypertension: Continue antihypertensive medications. History of reflux esophagitis: Continue pantoprazole. DVT Prophylaxis: Lovenox Code: Full code. Disposition: Pending hospital course. Will dc once cleared by cardiology
--- NOTE | 2024-01-26 14:41 | P.DS ---
Admission Date: 01/24/24 Discharge Date: 01/26/24 Disposition: ROUTINE DISCHARGE Discharge Condition: GOOD Reason for Admission: Chest pain, pneumonia. Brief History of Present Illness: 73-year-old female patient was evaluated in ED for episode of chest pain and congestion/heavy feeling. She reported sensation of heavy feeling in the lung with chest pain rated 6 out of 10 in intensity. Location is central with no overt episode of fever, chills. She was worked up in the ED for suspected intrathoracic pathology and was found to have CT of the chest concerning for tree-in-bud appearance of the tracheobronchial tree worrisome for infectious process. She also does have a history of reflux esophagitis and she takes pantoprazole therapy. Initial troponin and EKG were not overtly concerning. She was admitted for inpatient workup of suspected ACS. Hospital Course: Pt is a 73-year-old female with past medical history of htn, HLD, and GERD who presented with chest pain and congestion. She reported sensation of heavy feeling in the lung with the severity of chest of about 6/10. On admission, CT chest was negative for PE but it showed tree-in-bud appearance of the tracheobronchial tree worrisome for pneumonia. We admitted pt to r/o ACS and also consulted cardiology. Troponin was negative. Meanwhile, we started rocephin and azithro for pneumonia. Cardiology did cardiac and placed a stent in the LAD. Pt was prescribed brilinta and aspirin after the cardiac cath. She was advised to take DAPT for at least 1 year. We continued home meds for other chronic medical problems. Pt was advised to complete cefdinir and azithromycin at home. She was in NAD prior to discharge. Vital Signs/Physical Exam: Temp Pulse Resp BP Pulse Ox 97.3 F 67 18 157/67 H 96 01/26/24 12:00 01/26/24 12:00 01/26/24 12:00 01/26/24 12:00 01/26/24 12:00 Laboratory Data at Discharge: WBC 9.10 thou/uL (4.3-10.9) 01/26/24 03:29 Hgb 13.4 g/dL (12.0-15.0) 01/26/24 03:29 Hct 39.5 % (36.0-45.0) 01/26/24 03:29 Plt Count 278 thou/uL (152-406) 01/26/24 03:29 Sodium 143 mEq/L (136-145) 01/26/24 03:29 Potassium 3.7 mEq/L (3.5-5.1) 01/26/24 03:29 BUN 16 mg/dL (7-18) 01/26/24 03:29 Creatinine 0.81 mg/dL (0.55-1.02) 01/26/24 03:29 Glucose 196 mg/dL (74-106) H 01/26/24 03:29 Triglycerides 162 mg/dL (<150) H 01/25/24 04:30 Cholesterol 165 mg/dL (<200) 01/25/24 04:30 HDL Cholesterol 34 mg/dL (40-60) L 01/25/24 04:30 Cholesterol/HDL Ratio 4.85 01/25/24 04:30 Home Medications: Aspirin Chewable [Aspirin Chewable*] 81 mg PO DAILY 01/04/24 Pantoprazole [Protonix Tab*] 40 mg PO EVERY 3RD DAY PRN 01/04/24 Atorvastatin Calcium [Lipitor] 40 mg PO BEDTIME 90 Days #90 tab 01/26/24 Azithromycin Tab [Zithromax*] 500 mg PO DAILY 5 Days #5 tab 01/26/24 Cefdinir [Cefdinir*] 300 mg PO BID 5 Days #10 cap 01/26/24 Sotalol HCl [Betapace*] 40 mg PO BID 6AM 6PM 30 Days #60 tab 01/26/24 Ticagrelor [Brilinta*] 90 mg PO BID 90 Days #180 tab 01/26/24 New Medications: Sotalol HCl [Betapace*] 40 mg PO BID 6AM 6PM 30 Days #60 tab Ticagrelor [Brilinta*] 90 mg PO BID 90 Days #180 tab Cefdinir [Cefdinir*] 300 mg PO BID 5 Days #10 cap Atorvastatin Calcium [Lipitor] 40 mg PO BEDTIME 90 Days #90 tab Azithromycin Tab [Zithromax*] 500 mg PO DAILY 5 Days #5 tab Physician Discharge Instructions: Continue ad seferino activity. Take brilinta and aspirin for at least 1 year. Also take sotalol 80mg po BID and atorvastatin. Take cefdinir 300mg po BID and atorvastatin 500mg po daily for 5 days. Stop taking carvedilol. Follow up with PCP within 1 week. Diet: AHA Activity: Ad seferino Followup: Bola Brooks MD [Primary Care Provider] -
[2024-01-26 17:16] VITALS: O2SAT 95
--- NOTE | 2024-01-26 17:30 | P.PN ---
Subjective Date of Service: 01/26/24 Chief Complaint: Chest pain, pneumonia. Subjective: No new changes Review of Systems 10-point ROS is otherwise unremarkable Physical Examination - Vital Signs Temperature: 97.3 F Blood Pressure: 157/67 Pulse: 67 Respirations: 18 Pulse Ox (%): 96 - Physical Exam General: Alert, Oriented x3 HEENT: Atraumatic Neck: Supple Respiratory: Clear to auscultation bilaterally Cardiovascular: No edema, Normal S1 S2 Gastrointestinal: Normal bowel sounds Assessment And Plan - Current Problems (Diagnosis) (1) CAD (coronary artery disease) Current Visit: Yes Status: Acute Plan: patient is S/P PCI of LAD with 3.0 mm ALIYAH continue ASA 81 mg daily for life. Continue Brilinta 90 mg po BID for 12 months please start Patient on Lipitor 40 mg daily (2) PVC (premature ventricular contraction) Current Visit: Yes Status: Acute Plan: patient was started on Sotalol 40 mg po BID, Please start patient on Toprol XL 25 mg daily OK to discharge home if EKG after 3rd dose to sotalol shows normal QT interval. (3) HTN (hypertension) Current Visit: Yes Status: Acute Plan: start patient on Toprol XL 25 mg daily.
[2024-01-27 04:02] LABS: Anion Gap 10.1 mEq/L (5.0-15.0); Potassium 4.1 mEq/L (3.5-5.1)
--- NOTE | 2024-01-27 06:58 | ECHO ---
HEIGHT: 5 ft 5 in WEIGHT: 150 lb 0 oz DATE OF STUDY: 01/26/[address]: Erich Rodarte MD 2-DIMENSIONAL: YES M.MODE: YES DOPPLER: YES COLOR FLOW: YES TDS: PORTABLE: YES DEFINITY: BUBBLE STUDY: DIAGNOSIS: CHEST PAIN CARDIAC HISTORY: CATHERIZATION: SURGERY: PROSTHETIC VALVE: PACEMAKER: MEASUREMENTS (cm) DIASTOLIC (NORMALS) SYSTOLIC (NORMALS) IVSd 0.9 (0.6-1.2) LA Diam 3.6 (1.9-4.0) LVEF 68% LVIDd 4.8 (3.5-5.7) LVIDs 3.0 (2.0-3.5) %FS 38% LVPWd 1.3 (0.6-1.2) Ao Diam 2.7 (2.0-3.7) 2 DIMENSIONAL ASSESSMENT: RIGHT ATRIUM: NORMAL LEFT ATRIUM: NORMAL RIGHT VENTRICLE: NORMAL LEFT VENTRICLE: NORMAL TRICUSPID VALVE: TRACE TRICUSPID REGURGITATION MITRAL VALVE: NORMAL PULMONIC VALVE: NORMAL AORTIC VALVE: NORMAL PERICARDIAL EFFUSION: NONE AORTIC ROOT: NORMAL LEFT VENTRICULAR WALL MOTION: NORMAL DOPPLER/COLOR FLOW: NORMAL COMMENTS: 1. NORMAL LEFT VENTRICULAR SYSTOLIC FUNCTION, EJECTION FRACTION 60-65%, NORMAL WALL MOTION 2. TRACE TRICUSPID REGURGITATION TECHNOLOGIST: NELLIE SOSA
--- NOTE | 2024-01-27 09:54 | P.DS ---
Admission Date: 01/24/24 Discharge Date: 01/27/24 Disposition: ROUTINE DISCHARGE Discharge Condition: GOOD Reason for Admission: Chest pain, pneumonia. Brief History of Present Illness: 73-year-old female patient was evaluated in ED for episode of chest pain and congestion/heavy feeling. She reported sensation of heavy feeling in the lung with chest pain rated 6 out of 10 in intensity. Location is central with no overt episode of fever, chills. She was worked up in the ED for suspected intrathoracic pathology and was found to have CT of the chest concerning for tree-in-bud appearance of the tracheobronchial tree worrisome for infectious process. She also does have a history of reflux esophagitis and she takes pantoprazole therapy. Initial troponin and EKG were not overtly concerning. She was admitted for inpatient workup of suspected ACS. Hospital Course: Pt is a 73-year-old female with past medical history of htn, HLD, and GERD who presented with chest pain and congestion. She reported sensation of heavy feeling in the lung with the severity of chest of about 6/10. On admission, CT chest was negative for PE but it showed tree-in-bud appearance of the tracheobronchial tree worrisome for pneumonia. We admitted pt to r/o ACS and also consulted cardiology. Troponin was negative. Meanwhile, we started rocephin and azithro for pneumonia. Cardiology did cardiac and placed a stent in the LAD. Pt was prescribed brilinta and aspirin after the cardiac cath. She was advised to take DAPT for at least 1 year. We continued home meds for other chronic medical problems. Pt was advised to complete cefdinir and azithromycin at home. She was in NAD prior to discharge. Vital Signs/Physical Exam: Temp Pulse Resp BP Pulse Ox 97.9 F 71 14 179/77 H 95 01/27/24 08:00 01/27/24 08:00 01/27/24 08:00 01/27/24 08:00 01/27/24 08:00 Laboratory Data at Discharge: WBC 9.10 thou/uL (4.3-10.9) 01/26/24 03:29 Hgb 13.4 g/dL (12.0-15.0) 01/26/24 03:29 Hct 39.5 % (36.0-45.0) 01/26/24 03:29 Plt Count 278 thou/uL (152-406) 01/26/24 03:29 Sodium 141 mEq/L (136-145) 01/27/24 02:50 Potassium 4.1 mEq/L (3.5-5.1) 01/27/24 02:50 BUN 14 mg/dL (7-18) 01/27/24 02:50 Creatinine 0.82 mg/dL (0.55-1.02) 01/27/24 02:50 Glucose 145 mg/dL (74-106) H 01/27/24 02:50 Triglycerides 162 mg/dL (<150) H 01/25/24 04:30 Cholesterol 165 mg/dL (<200) 01/25/24 04:30 HDL Cholesterol 34 mg/dL (40-60) L 01/25/24 04:30 Cholesterol/HDL Ratio 4.85 01/25/24 04:30 Home Medications: Aspirin Chewable [Aspirin Chewable*] 81 mg PO DAILY 01/04/24 Pantoprazole [Protonix Tab*] 40 mg PO EVERY 3RD DAY PRN 01/04/24 Atorvastatin Calcium [Lipitor] 40 mg PO BEDTIME 90 Days #90 tab 01/26/24 Azithromycin Tab [Zithromax*] 500 mg PO DAILY 5 Days #5 tab 01/26/24 Cefdinir [Cefdinir*] 300 mg PO BID 5 Days #10 cap 01/26/24 Sotalol HCl [Betapace*] 40 mg PO BID 6AM 6PM 30 Days #60 tab 01/26/24 Ticagrelor [Brilinta*] 90 mg PO BID 90 Days #180 tab 01/26/24 New Medications: Sotalol HCl [Betapace*] 40 mg PO BID 6AM 6PM 30 Days #60 tab Ticagrelor [Brilinta*] 90 mg PO BID 90 Days #180 tab Cefdinir [Cefdinir*] 300 mg PO BID 5 Days #10 cap Atorvastatin Calcium [Lipitor] 40 mg PO BEDTIME 90 Days #90 tab Azithromycin Tab [Zithromax*] 500 mg PO DAILY 5 Days #5 tab Physician Discharge Instructions: Continue ad seferino activity. Take brilinta and aspirin for at least 1 year. Also take sotalol 80mg po BID and atorvastatin. Take cefdinir 300mg po BID and atorvastatin 500mg po daily for 5 days. Stop taking carvedilol. Follow up with PCP within 1 week. Diet: AHA Activity: Ad seferino Followup: Bola Brooks MD [Primary Care Provider] - 1 Week
[2024-01-27 09:58] VITALS: BP 179/77; TEMP 97.9
--- NOTE | 2024-01-31 14:33 | EKG ---
Test Date: 2024-01-26 Test Time: 19:14:14 [employer]: MEASUREMENT RESULTS: Intervals: Rate: 71 WA: 156 QRSD: 68 QT: 448 QTc: 486 [place]: P: 58 WA: 156 QRS: 7 T: 59 INTERPRETIVE STATEMENTS: Sinus rhythm with occasional premature ventricular complexes Possible Left atrial enlargement Nonspecific ST and T wave abnormality Prolonged QT Abnormal ECG Compared to ECG 01/24/2024 18:17:30 Prolonged QT interval now present ST (T wave) deviation still present Electronically Signed On 01-31-24 14:18:47 CDT by Samuel Bartlett
--- NOTE | 2024-01-31 14:33 | EKG ---
Test Date: 2024-01-26 Test Time: 19:27:21 [place] Tab: MEASUREMENT RESULTS: Intervals: Rate: 71 NE: 150 QRSD: 70 QT: 440 QTc: 478 [place]: P: 17 NE: 150 QRS: -6 T: 57 INTERPRETIVE STATEMENTS: Sinus rhythm with occasional premature ventricular complexes Nonspecific ST and T wave abnormality Prolonged QT Abnormal ECG Compared to ECG 01/24/2024 18:17:30 Prolonged QT interval now present ST (T wave) deviation still present Electronically Signed On 01-31-24 14:18:43 CDT by Samuel Bartlett
== END 2024-01-27 09:55 | disposition home or self-care (01) | DRG 321 ==
LOC: ER 18:16 → ERHOLD 20:35 → 2ND 22:15
PROVIDERS: ADMIT Internal Medicine Nephrology; ATTEND Hospitalist
PROC: 027034Z Dilation of Coronary Artery, One Artery with Drug-eluting Intraluminal Device, Percutaneous Approach (ICD-10-PCS; principal; 2024-01-24)
PROC: 4A023N7 Measurement of Cardiac Sampling and Pressure, Left Heart, Percutaneous Approach (ICD-10-PCS; 2024-01-24)
PROC: B2111ZZ Fluoroscopy of Multiple Coronary Arteries using Low Osmolar Contrast (ICD-10-PCS; 2024-01-24)
DX: I47.20 Ventricular tachycardia, unspecified (principal); J18.9 Pneumonia, unspecified organism; I10 Essential (primary) hypertension; I49.3 Ventricular premature depolarization; E78.5 Hyperlipidemia, unspecified; K21.9 Gastro-esophageal reflux disease without esophagitis; I25.10 Atherosclerotic heart disease of native coronary artery without angina pectoris; R73.9 Hyperglycemia, unspecified; Z79.82 Long term (current) use of aspirin; Z79.02 Long term (current) use of antithrombotics/antiplatelets; Z79.899 Other long term (current) drug therapy
CPT/HCPCS: 36415; 71045; 71275; 76937; 80048; 80061; 83880; 84484; 85025; 85347; 93005; 93306; 93458; 99152; 99285; C1725; C1893; C9600; J0461; J0696; J1644; J1650; J2001; J2250; J3010; J7040; J7050; Q9966; Q9967